=== PATIENT | female | born 1965 | race Hispanic/Latino ===

== ENCOUNTER → 2025-01-01 | Day surgery (SDC) | payer BC, OTHER ==
[~2025-01-01] MED LIST: BIOTIN 800 MCG1 EACH PO; DEXAMETHASONE SOD PHOS INJ 4 MG/ML SDV ONE; EPHEDRINE SULFATE INJ 50 MG/ML VIAL ONE; FENTANYL CITRATE/PF 100MCG/2 ML INJ ONE; FISH OIL 1,0001 EAC7 PO; LIDOCAINE HCL 2% LOCAL INJ 5 ML SDV VIAL INJ ONE; MIDAZOLAM HCL 2 MG/2 ML VIAL ONE; ONDANSETRON HCL INJ 2MG/ML 2ML 2 MG/ML VIAL ONE; PROPOFOL IV EMULSION 50 ML IV ONE; VIT D3 PO
[2025-01-01] MEDS: LACTATED RINGER'S 1,000 ML ONE (07:09)
[2025-01-01] MEDS: CEFTRIAXONE 1 GM VIAL ONE (07:10)
[2025-01-01 09:20] VITALS: BP 135/70; PULSE 70; RESP 16; O2SAT 98
== END | disposition home or self-care (01) ==
LOC: OR 06:03
PROVIDERS: ATTEND Urology
DX: N39.0 Urinary tract infection, site not specified (principal); F32.A Depression, unspecified; Z01.810 Encounter for preprocedural cardiovascular examination
CPT/HCPCS: 52005; 74420; 93005; C1758; J0696; J1100; J2003; J2250; J2405; J2704; J3010; J7121